=== PATIENT | female | born 1980 | race Caucasian/White ===

== ENCOUNTER 2019-06-17 13:42 | Emergency (ER) | payer MEDICAID ==
[~2019-06-17] VITALS: Ht 152.4 cm; Wt 65.8 kg
[~2019-06-17 13:42] MED LIST: ACET500C5 PO; HYDR-4011 PO
[2019-06-17 13:51] VITALS: BP 121/85; PULSE 100; RESP 16; Ht 152.4 cm; Wt 65.8 kg
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
[2019-06-17] MEDS ORDERED: HYDROCODONE/APAP (5/325) TAB PO ONE (15:30)
[2019-06-17] MEDS: ONDANSETRON (ODT) 4 MG TAB ODT STA ×2 (15:39→15:49)
[2019-06-17] MEDS ORDERED: ACETAMINOPHEN 500 MG TAB PO STA (15:45)
== END 2019-06-17 16:15 | disposition home or self-care (01) ==
LOC: FTE 13:42
DX: S01.01XA Laceration without foreign body of scalp, initial encounter (principal); Y04.8XXA Assault by other bodily force, initial encounter
CPT/HCPCS: 12031; Z7502; Z7610